=== PATIENT | male | born 1965 | race Caucasian/White ===

== ENCOUNTER 2017-06-18 06:42 | Day surgery (SDC) | payer OTHER ==
[~2017-06-18] VITALS: Ht 182.9 cm; Wt 175.9 kg
[~2017-06-18 06:42] MED LIST: SODIUM CHLORIDE 0.9% 1000ML 1,000 ML IV ONE
[2017-06-18 07:10] LABS: BASOPHILS % (AUTO) 0.9 % (0.0-5.0); EOSINOPHILS % (AUTO) 3.4 % (0.0-8.0); HEMATOCRIT 42.1 % (42-54); LYMPHOCYTES % (AUTO) 25.4 % (21.0-51.0); MEAN CORPUSCULAR HGB CONC 33.6 g/dL (32.0-36.0); MEAN CORPUSCULAR VOLUME 86.4 fL (79-99); MONOCYTES % (AUTO) 7.2 % (3.0-13.0); NEUTROPHILS % (AUTO) 63.1 % (40.0-77.0); NUCLEATED RED BLOOD CELLS 0.1 % (0.0-0.19); PLATELET COUNT (AUTO) 346 K/uL (130-400); RED BLOOD CELL COUNT(AUTO) 4.88 MIL/uL (4.50-6.20); RED CELL DISTRIBUTION WIDTH 14.8 % (11.0-15.5); WHITE BLOOD COUNT (AUTO) 12.3 K/uL (4.8-10.8)
[2017-06-18 07:24] VITALS: BP 151/81
[2017-06-18] MEDS ORDERED: METF500T6 PO (07:46)
[2017-06-18] MEDS ORDERED: ENAL2.5T PO (07:46)
[2017-06-18] MEDS ORDERED: ROPI2TAB2 PO (07:46)
[2017-06-18 08:26] VITALS: BP 96/65
== END 2017-06-18 09:05 | disposition home or self-care (01) ==
LOC: DAH 06:42 → ENDO 06:42 → EDBD 08:30 → ENDO 09:05
PROVIDERS: ATTEND Surgery
DX: K21.9 Gastro-esophageal reflux disease without esophagitis (principal); E11.9 Type 2 diabetes mellitus without complications; M19.90 Unspecified osteoarthritis, unspecified site; Z90.49 Acquired absence of other specified parts of digestive tract; Z98.890 Other specified postprocedural states
CPT/HCPCS: 36415; 43235; 80048; 82948 ×2; 85025; A4606; J7030

== ENCOUNTER → 2017-07-03 | Outpatient (CLI) | payer OTHER ==
[~2017-07-03] VITALS: Wt 177.3 kg
[~2017-07-03] MED LIST changes: +ENAL2.5T PO; +METF500T6 PO; +ROPI2TAB2 PO; -SODIUM CHLORIDE 0.9% 1000ML 1,000 ML IV ONE
== END | disposition home or self-care (01) ==
LOC: DTH 10:00
PROVIDERS: ATTEND Surgery
DX: E11.9 Type 2 diabetes mellitus without complications (principal); E66.9 Obesity, unspecified
CPT/HCPCS: 97802

== ENCOUNTER → 2017-08-21 | Outpatient (CLI) | payer OTHER | END | disposition home or self-care (01) | LOC: DTH 09:26 | PROVIDERS: ATTEND Surgery | DX: E11.9 Type 2 diabetes mellitus without complications (principal); E66.09 Other obesity due to excess calories | CPT/HCPCS: 97803 ==

== ENCOUNTER → 2017-11-13 | Outpatient (CLI) | payer OTHER ==
[~2017-11-13] MED LIST changes: +METF-444 PO; -METF500T6 PO
== END | disposition home or self-care (01) ==
LOC: DTH 09:13
PROVIDERS: ATTEND Surgery
DX: E11.9 Type 2 diabetes mellitus without complications (principal); E66.01 Morbid (severe) obesity due to excess calories; K21.9 Gastro-esophageal reflux disease without esophagitis; I10 Essential (primary) hypertension
CPT/HCPCS: 97803

== ENCOUNTER → 2018-01-01 | Outpatient (CLI) | payer OTHER | END | disposition home or self-care (01) | LOC: DTH 09:19 | PROVIDERS: ATTEND Surgery | DX: E11.9 Type 2 diabetes mellitus without complications (principal); E66.9 Obesity, unspecified; K21.9 Gastro-esophageal reflux disease without esophagitis | CPT/HCPCS: 97803 ==

== ENCOUNTER 2018-09-05 18:30 | Emergency (ER) | payer OTHER | END 2018-09-05 18:55 | disposition home or self-care (01) | LOC: EDH 18:30 | DX: T63.481A Toxic effect of venom of other arthropod, accidental (unintentional), initial encounter (principal); I10 Essential (primary) hypertension; E11.9 Type 2 diabetes mellitus without complications; Z90.49 Acquired absence of other specified parts of digestive tract; Z98.890 Other specified postprocedural states; Y92.89 Other specified places as the place of occurrence of the external cause ==

== ENCOUNTER 2018-10-23 06:54 | Day surgery (SDC) | payer OTHER ==
[~2018-10-23] VITALS: Ht 188 cm; Wt 176.4 kg
[~2018-10-23 06:54] MED LIST changes: +SODIUM CHLORIDE 0.9% 1000ML 1,000 ML IV ONE
[2018-10-23 07:39] VITALS: BP 139/83
[2018-10-23] MEDS ORDERED: ENAL5TAB PO (07:45)
[2018-10-23] MEDS ORDERED: METF-444 PO (07:45)
[2018-10-23] MEDS ORDERED: MAG-55 PO (07:45)
[2018-10-23] MEDS ORDERED: FAMOTIDINE/PF 20 MG/2 ML VIAL IV ONE (08:49)
[2018-10-23] MEDS ORDERED: PROPOFOL 10 MG/ML 20ML VIAL IV ONE (10:56)
[2018-10-23 11:08] VITALS: BP 118/65
[2018-10-23 11:14] VITALS: BP 120/70
[2018-10-23 11:24] VITALS: BP 117/65
[2018-10-23 11:30] VITALS: BP 113/67
== END 2018-10-23 11:40 | disposition home or self-care (01) ==
LOC: DAH 06:54 → ENDO 06:54
PROVIDERS: ATTEND Surgery
DX: E66.01 Morbid (severe) obesity due to excess calories (principal); K21.9 Gastro-esophageal reflux disease without esophagitis; E10.9 Type 1 diabetes mellitus without complications; I10 Essential (primary) hypertension; Z90.49 Acquired absence of other specified parts of digestive tract; Z98.890 Other specified postprocedural states; Z68.43 Body mass index [BMI] 50.0-59.9, adult; Z82.49 Family history of ischemic heart disease and other diseases of the circulatory system; Z82.3 Family history of stroke; Z83.3 Family history of diabetes mellitus; Z79.84 Long term (current) use of oral hypoglycemic drugs; Z79.899 Other long term (current) drug therapy
CPT/HCPCS: 43235; 82948 ×2; A4606; J2704; J3490; J7030

== ENCOUNTER → 2018-11-05 | Outpatient (CLI) | payer OTHER ==
[~2018-11-05] MED LIST changes: +ENAL5TAB PO; +MAG-55 PO; -SODIUM CHLORIDE 0.9% 1000ML 1,000 ML IV ONE
== END | disposition home or self-care (01) ==
LOC: DTH 09:32
PROVIDERS: ATTEND Surgery
DX: E66.01 Morbid (severe) obesity due to excess calories (principal); E11.9 Type 2 diabetes mellitus without complications
CPT/HCPCS: 97803

== ENCOUNTER 2021-12-12 10:20 | Emergency (ER) | payer OTHER ==
[~2021-12-12] VITALS: Ht 182.9 cm; Wt 142.9 kg
[~2021-12-12 10:20] MED LIST changes: +AMLO5TAB4 PO; +CHOL200074 PO; -ENAL2.5T PO; +ENAL20TA18 PO; -ENAL5TAB PO; -MAG-55 PO; -METF-444 PO; +METF500S9 PO; +NEBI10TA PO; -ROPI2TAB2 PO; +ROPI2TAB7 PO
[2021-12-12] MEDS ORDERED: 0.9%NACL 1000ML 1,000 ML IV SCH (11:30)
[2021-12-12] MEDS ORDERED: ONDANSETRON 4MG INJ IVP ONE (11:30)
[2021-12-12] MEDS ORDERED: FAMOTIDINE 20MG VIAL IV ONE (11:30)
[2021-12-12] MEDS ORDERED: KETOROLAC 30MG VIAL (30MG/ML) IVP ONE (11:30)
[2021-12-12 11:44] LABS: HEMATOCRIT 41.5 % (42-54); MEAN CORPUSCULAR HEMOGLOBIN 28.6 pg (27.0-33.0); MEAN CORPUSCULAR HGB CONC 33.3 g/dL (32.0-36.0); MEAN CORPUSCULAR VOLUME 86.1 fL (79-99); PLATELET COUNT (AUTO) 247 K/uL (130-400); RED BLOOD CELL COUNT(AUTO) 4.82 MIL/uL (4.50-6.20); RED CELL DISTRIBUTION WIDTH 13.8 % (11.0-15.5); WHITE BLOOD COUNT (AUTO) 15.7 K/uL (4.8-10.8)
[2021-12-12 11:55] LABS: POTASSIUM 3.5 mmol/L (3.5-5.1)
[2021-12-12 12:00] LABS: ALBUMIN 3.4 g/dL (3.5-5.0); TOTAL PROTEIN, SERUM 7.9 g/dL (6.0-8.3)
[2021-12-12] MEDS ORDERED: IOHEXOL 350 MG/ML 100ML INFUS..BTL IV ONE ×2 (12:20→15:28)
[2021-12-12 12:23] LABS: BAND NEUTROPHILS % (MANUAL) 3 % (0-2); EOSINOPHILS % (MANUAL) 1 % (1-6); LYMPHOCYTES % (MANUAL) 4 % (22-44); MAN.DIFF COMMENT-IMPRESSION MANUAL DIFFERENTIAL; MONOCYTES % (MANUAL) 6 % (2-9); PLATELET MORPHOLOGY COMMENT ADEQUATE; SEGMENTED NEUTROPHILS % 86 % (40-70)
[2021-12-12 15:36] LABS: APPEARANCE,URINE CLOUDY (CLEAR); BILIRUBIN,URINE NEGATIVE (NEGATIVE); COLOR,URINE YELLOW (YELLOW); GLUCOSE, URINE (UA) NEGATIVE (NEGATIVE); KETONES,URINE 10 mg/dL (NEGATIVE); LEUKOCYTE ESTERASE ,URINE 500 Leu/uL (NEGATIVE); NITRATE,URINE NEGATIVE (NEGATIVE); PH,URINE 5.5 (5.0-8.0); PROTEIN,URINE 30 mg/dL (NEGATIVE); UROBILINOGEN,URINE 0.2 mg/dL (0.2-1.0)
[2021-12-12 15:46] LABS: BACTERIA,URINE RARE /HPF (None Seen); MUCUS,URINE MOD LPF (None Seen); SQUAMOUS EPITHELIAL CELL,UR RARE /HPF (0-2); WBC,URINE TNTC /HPF (0-1)
[2021-12-12] MEDS ORDERED: ONDA4TAB10 SL (16:25)
[2021-12-12] MEDS ORDERED: FAMO-136 PO (16:25)
[2021-12-12] MEDS ORDERED: OSEL75 PO (16:25)
[2021-12-12] MEDS ORDERED: CEPH500B PO (16:25)
[2021-12-12] MEDS ORDERED: LACT1CAP81 PO (16:25)
[2021-12-12] MEDS ORDERED: CEFTRIAXONE 2GM VIAL ONE (16:25)
[2021-12-12] MEDS ORDERED: CEFTRIAXONE 2GM VIAL IVP ONE (16:30)
[2021-12-12 16:35] VITALS: BP 107/59
== END 2021-12-12 17:17 | disposition home or self-care (01) ==
LOC: EDH 10:20
DX: N39.0 Urinary tract infection, site not specified (principal); J10.1 Influenza due to other identified influenza virus with other respiratory manifestations; Z20.822 Contact with and (suspected) exposure to COVID-19; I10 Essential (primary) hypertension; Z79.84 Long term (current) use of oral hypoglycemic drugs; Z86.73 Personal history of transient ischemic attack (TIA), and cerebral infarction without residual deficits; Z98.84 Bariatric surgery status
CPT/HCPCS: 99285; 74177; 96374; 96375; 96361; 87635; 80053; 85025; 87088; 87804 ×2; 81001; 36415; C9803; J3490; J7030; J0696; J2405; J1885; Q9967